=== PATIENT | female | born 1980 | race Hispanic/Latino ===

== ENCOUNTER 2017-03-17 17:57 | Emergency (ER) | payer OTHER ==
[~2017-03-17] VITALS: Ht 165.1 cm; Wt 98.1 kg
[~2017-03-17 17:57] MED LIST: FLONASE NASAL50 MCG; LORTAB5 OR; MUCINEX600 MG PO; NO HOME MEDS; PROTONIX40 MG PO; ROBAXIN250 MG OR; TRAMADOL HCL100 MG OR
[2017-03-17] MEDS ORDERED: IBUPROFEN200 MG PO (18:18)
[2017-03-17 19:03] LABS: HEMATOCRIT 36.5 % (37.0-47.0); HEMOGLOBIN 12.6 g/dl (12.0-16.0); IMMATURE GRANULOCYTES 0.3 % (0.0-1.0); MEAN CELL VOLUME 85.7 fL CALC (80.0-100.0); MEAN CORPUSCULAR HGB 29.6 pG CALC (26.0-32.0); MEAN CORPUSCULAR HGB CONC 34.5 g/L CALC (32.0-36.0); NEUT# 4.45 thou/uL (2.00-7.15); RED BLOOD COUNT 4.26 mill/uL (4.20-5.60); RED CELL DISTRI WIDTH 12.8 % (11.5-15.5)
[2017-03-17 19:07] LABS: URINE BILIRUBIN - DIPSTICK NEGATIVE (NEGATIVE); URINE BLOOD DIPSTICK NEGATIVE (NEGATIVE); URINE COLOR YELLOW; URINE GLUCOSE - DIPSTICK NEGATIVE (NEGATIVE); URINE KETONE NEGATIVE (NEGATIVE); URINE LEUK ESTERASE NEGATIVE (NEGATIVE); URINE NITRITE - DIPSTICK NEGATIVE (Negative); URINE PROTEIN - DIPSTICK NEGATIVE (NEG-TRACE); URINE UROBILINOGEN - DIPSTICK 0.2 E.U./dL (0.2)
[2017-03-17 19:08] LABS: URINE CLARITY CLEAR
[2017-03-17 19:12] LABS: ALBUMIN 4.3 g/dL (3.2-5.0); ALKALINE PHOSPHATASE 51 u/l (38-126); ANION GAP 14 (6-22 (CALC)); BILIRUBIN, TOTAL 0.2 mg/dL (0.0-1.4); BUN 14 mg/dL (7-17); BUN/CREATININE RATIO 14 (12-20 (CALC)); CALCIUM 9.3 mg/dL (8.4-10.2); CARBON DIOXIDE 23 mmol/l (22-30); CHLORIDE 109 mmol/l (95-108); GFR > 60 ML/MIN (>=60 (CALC)); GFR FOR AFR.AMER. > 60 ML/MIN (>=60 (CALC)); GLUCOSE 116 mg/dL (65-105); POTASSIUM 4.1 mmol/l (3.5-5.1); SGOT/AST 22 u/l (14-36); SGPT/ALT 29 u/l (9-52); SODIUM 142 mmol/l (137-146); TOTAL PROTEIN 7.9 g/dL (6.3-8.2)
[2017-03-17 19:24] LABS: MYOGLOBIN 22 ng/mL (0 - 62)
[2017-03-17] MEDS ORDERED: NAPROSYN500 MG PO (19:46)
[2017-03-17 20:32] VITALS: BP 125/64
== END 2017-03-17 20:36 | disposition home or self-care (01) | DRG 951 ==
LOC: ED 17:57
PROVIDERS: Emergency Medicine
DX: F17.210 Nicotine dependence, cigarettes, uncomplicated (principal); R07.89 Other chest pain

== ENCOUNTER 2021-04-10 11:39 | Emergency (ER) | payer OTHER ==
[~2021-04-10] VITALS: Ht 165.1 cm; Wt 75.0 kg
[~2021-04-10 11:39] MED LIST changes: +IBUPROFEN200 MG PO; +NAPROSYN500 MG PO
[2021-04-10] MEDS ORDERED: ACYCLOVIR200 MG PO (11:55)
[2021-04-10] MEDS ORDERED: METHYLPRED4 MG PO (11:55)
[2021-04-10] MEDS ORDERED: METHOCARBAMOL500 MG PO (11:55)
[2021-04-10] MEDS ORDERED: FLEXERIL5 M1 PO (12:33)
[2021-04-10] MEDS ORDERED: MOTRIN400 MG/TAB PO (12:33)
[2021-04-10 12:57] VITALS: BP 147/83
== END 2021-04-10 13:15 | disposition home or self-care (01) | DRG 552 ==
LOC: ED 11:39
DX: M54.50 Low back pain, unspecified (principal); F17.200 Nicotine dependence, unspecified, uncomplicated

== ENCOUNTER 2021-04-18 04:33 | Emergency (ER) | payer OTHER ==
[~2021-04-18] VITALS: Ht 165.1 cm; Wt 101.8 kg
[~2021-04-18 04:33] MED LIST changes: +ACYCLOVIR200 MG PO; +FLEXERIL5 M1 PO; +METHOCARBAMOL500 MG PO; +METHYLPRED4 MG PO; +MOTRIN400 MG/TAB PO
[2021-04-18 06:09] LABS: HEMATOCRIT 43.2 % (37.0-47.0); HEMOGLOBIN 14.3 g/dl (12.0-16.0); IMMATURE GRANULOCYTES 0.8 % (0.0-5.0); MEAN CELL VOLUME 89.4 fL CALC (80.0-100.0); MEAN CORPUSCULAR HGB 29.6 pG CALC (26.0-32.0); MEAN CORPUSCULAR HGB CONC 33.1 g/dL CAL (32.0-36.0); NEUT# 3.97 thou/uL (2.00-7.15); RED BLOOD COUNT 4.83 mill/uL (4.20-5.60); RED CELL DISTRI WIDTH 12.4 % (11.5-15.5)
[2021-04-18 06:10] LABS: URINE BILIRUBIN - DIPSTICK NEGATIVE (NEGATIVE); URINE BLOOD DIPSTICK NEGATIVE (NEGATIVE); URINE COLOR YELLOW; URINE GLUCOSE - DIPSTICK NEGATIVE (NEGATIVE); URINE KETONE NEGATIVE (NEGATIVE); URINE LEUK ESTERASE NEGATIVE (NEGATIVE); URINE PROTEIN - DIPSTICK NEGATIVE (NEG-TRACE); URINE SPECIFIC GRAVITY 1.025; URINE UROBILINOGEN - DIPSTICK 0.2 E.U./dL (0.2)
[2021-04-18 06:13] LABS: URINE NITRITE - DIPSTICK NEGATIVE (Negative)
[2021-04-18 06:22] LABS: ALKALINE PHOSPHATASE 57 u/l (38-126); AMYLASE 76 u/l (30-110); BUN 15 mg/dL (7-17); BUN/CREATININE RATIO 16 (12-20 (CALC)); CHLORIDE 105 mmol/l (95-108); GFR > 60 ML/MIN (>=60 (CALC)); GFR FOR AFR.AMER. > 60 ML/MIN (>=60 (CALC)); LIPASE 274 u/l (23-300); POTASSIUM 4.2 mmol/l (3.5-5.1); SGOT/AST 20 u/l (14-36); SODIUM 141 mmol/l (137-146); TOTAL PROTEIN 7.8 g/dL (6.3-8.2)
[2021-04-18 06:30] LABS: ANION GAP 12 (6-22 (CALC)); BILIRUBIN, TOTAL 0.5 mg/dL (0.0-1.4); CARBON DIOXIDE 28 mmol/l (22-30)
[2021-04-18] MEDS ORDERED: ONDANSETRON4 MG PO (08:07)
[2021-04-18] MEDS ORDERED: PREVACID30 M3 PO (08:09)
[2021-04-18] MEDS ORDERED: NAPROXEN500 MG PO (08:09)
[2021-04-18 08:16] VITALS: BP 97/63
== END 2021-04-18 08:43 | disposition home or self-care (01) | DRG 392 ==
LOC: ED 04:33
PROVIDERS: Emergency Medicine
DX: R10.9 Unspecified abdominal pain (principal); M54.50 Low back pain, unspecified; F17.200 Nicotine dependence, unspecified, uncomplicated
CPT/HCPCS: Q9967

== ENCOUNTER 2021-06-30 18:55 | Emergency (ER) | payer OTHER ==
[~2021-06-30] VITALS: Ht 165.1 cm; Wt 99.5 kg
[~2021-06-30 18:55] MED LIST changes: +NAPROXEN500 MG PO; +ONDANSETRON4 MG PO; +PREVACID30 M3 PO
[2021-06-30 19:19] VITALS: BP 136/78
[2021-06-30 19:46] LABS: URINE BILIRUBIN - DIPSTICK NEGATIVE (NEGATIVE); URINE BLOOD DIPSTICK NEGATIVE (NEGATIVE); URINE COLOR YELLOW; URINE GLUCOSE - DIPSTICK NEGATIVE (NEGATIVE); URINE KETONE NEGATIVE (NEGATIVE); URINE LEUK ESTERASE NEGATIVE (NEGATIVE); URINE PROTEIN - DIPSTICK NEGATIVE (NEG-TRACE); URINE SPECIFIC GRAVITY <=1.005; URINE UROBILINOGEN - DIPSTICK 0.2 E.U./dL (0.2)
[2021-06-30 19:46] LABS: HEMATOCRIT 39.3 % (37.0-47.0); HEMOGLOBIN 13.3 g/dl (12.0-16.0); IMMATURE GRANULOCYTES 0.2 % (0.0-5.0); MEAN CELL VOLUME 90.1 fL CALC (80.0-100.0); MEAN CORPUSCULAR HGB 30.5 pG CALC (26.0-32.0); MEAN CORPUSCULAR HGB CONC 33.8 g/dL CAL (32.0-36.0); NEUT# 2.82 thou/uL (2.00-7.15); RED BLOOD COUNT 4.36 mill/uL (4.20-5.60); RED CELL DISTRI WIDTH 12.9 % (11.5-15.5)
[2021-06-30 19:47] LABS: URINE NITRITE - DIPSTICK NEGATIVE (Negative)
[2021-06-30 19:56] LABS: ALBUMIN 4.1 g/dL (3.2-5.0); ALKALINE PHOSPHATASE 60 u/l (38-126); ANION GAP 12 (6-22 (CALC)); BILIRUBIN, TOTAL 0.4 mg/dL (0.0-1.4); BUN 13 mg/dL (7-17); BUN/CREATININE RATIO 14 (12-20 (CALC)); CARBON DIOXIDE 23 mmol/l (22-30); CHLORIDE 108 mmol/l (95-108); CREATININE 0.9 mg/dL (0.5-1.0); GFR > 60 ML/MIN (>=60 (CALC)); GFR FOR AFR.AMER. > 60 ML/MIN (>=60 (CALC)); MAGNESIUM 2.2 mg/dL (1.6-2.3); POTASSIUM 3.5 mmol/l (3.5-5.1); SODIUM 140 mmol/l (137-146); TOTAL PROTEIN 7.9 g/dL (6.3-8.2)
[2021-06-30 19:58] LABS: SGOT/AST 41 u/l (14-36)
[2021-06-30 20:03] VITALS: BP 114/66
[2021-06-30 20:08] LABS: MYOGLOBIN 34 ng/mL (0 - 62)
[2021-06-30] MEDS ORDERED: MECLIZINE25 MG PO (21:08)
[2021-06-30 21:15] VITALS: BP 114/66
== END 2021-06-30 21:15 | disposition home or self-care (01) | DRG 149 ==
LOC: ED 18:55
PROVIDERS: Family Medicine
DX: H81.10 Benign paroxysmal vertigo, unspecified ear (principal); F17.200 Nicotine dependence, unspecified, uncomplicated

== ENCOUNTER 2021-10-20 18:58 | Emergency (ER) | payer OTHER ==
[2021-10-20] VITALS (7 sets, daily range): BP systolic 118–145; BP diastolic 77–89
[~2021-10-20] VITALS: Ht 165.1 cm; Wt 94.5 kg
[~2021-10-20 18:58] MED LIST changes: +MECLIZINE25 MG PO
== END 2021-10-20 22:23 | disposition home or self-care (01) | DRG 204 ==
LOC: ED 18:58
DX: R07.81 Pleurodynia (principal); M54.2 Cervicalgia; V49.50XA Passenger injured in collision with unspecified motor vehicles in traffic accident, initial encounter

== ENCOUNTER 2024-02-28 15:59 | Emergency (ER) | payer BC, OTHER ==
[~2024-02-28] VITALS: Ht 165.1 cm; Wt 101.6 kg
[2024-02-28 16:10] VITALS: BP 132/82
[2024-02-28] MEDS ORDERED: AMOX/K CLAV875 M1 PO (16:15)
[2024-02-28] MEDS ORDERED: DEXAMETHASONE 2 MG/TAB TAB PO ONE (16:15)
[2024-02-28 16:18] VITALS: BP 132/82
== END 2024-02-28 16:26 | disposition home or self-care (01) | DRG 153 ==
LOC: ED 15:59
DX: J02.9 Acute pharyngitis, unspecified (principal); F17.200 Nicotine dependence, unspecified, uncomplicated